=== PATIENT | female | born 1980 | race African-American/Black ===

== ENCOUNTER → 2016-11-27 | Day surgery (SDC) | payer MEDICARE, MEDICAID ==
[~2016-11-27] VITALS: Ht 175.3 cm; Wt 88.0 kg
[~2016-11-27] MED LIST: FERR-63 PO; LACTATED RINGERS 1,000 ML IV SCH; MIDAZOLAM HCL 2 MG/2 ML VIAL ONE; PREN-88 PO
[2016-11-27 08:38] LABS: EOSINOPHILS % 1.7 % (0.0-5.0); HEMATOCRIT. 37.1 % (36.0-48.0); HEMOGLOBIN. 12.6 g/dL (12.0-16.0); LYMPHOCYTES % 22.5 % (20.0-50.0); MEAN CORPUSCULAR HEMOGLOBIN 26.7 pg (28.0-32.0); MEAN CORPUSCULAR VOLUME 78.2 fL (81.0-99.0); MEAN PLATELET VOLUME 8.3 fl (7.4-10.4); MONOCYTES % 7.2 % (2.0-8.0); NEUTROPHILS % 67.6 % (40.0-76.0); PLATELET 220 x1000/uL (130-400); RED BLOOD CELL COUNT 4.74 mill/uL (4.2-5.4); RED CELL DISTRIBUTION WIDTH 13.7 % (11.6-14.6)
[2016-11-27 08:40] LABS: CLARITY URINE CLEAR (CLEAR); COLOR URINE YELLOW (YELLOW); KETONES URINE NEGATIVE (NEGATIVE); LEUKOCYTE ESTERASE URINE NEGATIVE (NEGATIVE); NITRITE URINE NEGATIVE (NEGATIVE); OCCULT BLOOD URINE NEGATIVE (NEGATIVE); PH URINE 5.5 (4.5-8.0); PROTEIN URINE NEGATIVE (NEGATIVE); SPECIFIC GRAVITY URINE 1.016 (1.005-1.030); UROBILINOGEN URINE 0.2 E.U./dL (0.2-1.0)
[2016-11-27 08:47] LABS: PARTIAL THROMBOPLASTIN TIME 28.9 sec (24.0-34.0); PROTHROMBIN TIME 10.4 sec
[2016-11-27 09:13] LABS: UCG SCREEN NEGATIVE
== END | disposition home or self-care (01) ==
LOC: OR 07:47
PROVIDERS: ATTEND Obstetrics & Gynecology Obstetrics
DX: D25.9 Leiomyoma of uterus, unspecified (principal); J45.909 Unspecified asthma, uncomplicated; Z53.9 Procedure and treatment not carried out, unspecified reason
CPT/HCPCS: 36415; 81003; 81025; 85025; 85610; 85730; 86850; 86900; 86901; J2250; J7120

== ENCOUNTER 2018-08-12 20:47 | Emergency (ER) | payer MEDICARE, BC, MEDICAID ==
[~2018-08-12] VITALS: Ht 175.3 cm; Wt 89.0 kg
[~2018-08-12 20:47] MED LIST changes: -LACTATED RINGERS 1,000 ML IV SCH; -MIDAZOLAM HCL 2 MG/2 ML VIAL ONE
[2018-08-13] MEDS ORDERED: FLUORESCEIN SODIUM 1MG/STRIP BOTHEYE ONE (02:00)
[2018-08-13] MEDS ORDERED: TETRACAINE 0.5% OPHTH DROPS 4ML BOTHEYE ONE (02:00)
[2018-08-13 03:10] LABS: CHLORIDE 107 mEq/L (98-107)
[2018-08-13] MEDS ORDERED: POLYMYXIN B SULFATE/TMP 10ML BOTTLE LEFTEYE SCH (04:30)
[2018-08-13] MEDS ORDERED: HYDROCODONE/ACETAMINOPHEN 10/325MG TABLET PO ONE (04:45)
[2018-08-13] MEDS ORDERED: CIPROFLOXACIN 0.3% OPHTH SOLN 2.5ML LEFTEYE SCH (05:00)
[2018-08-13] MEDS ORDERED: IOHEXOL-300 100 ML BOTTLE ONE (05:20)
[2018-08-13 06:00] VITALS: BP 131/71
== END 2018-08-13 06:00 | disposition home or self-care (01) ==
LOC: ER 20:47
DX: H16.002 Unspecified corneal ulcer, left eye (principal); H40.9 Unspecified glaucoma; Z90.710 Acquired absence of both cervix and uterus; Z98.890 Other specified postprocedural states
CPT/HCPCS: 36415; 70487; 80053; 99284; Q9967